=== PATIENT | female | born 2000 | race Hispanic/Latino ===

== ENCOUNTER 2018-08-04 17:26 | Emergency (ER) | payer SELFPAY ==
[2018-08-04] MEDS ORDERED: Fentanyl 100 MCG/2 ML VIAL ONE (17:35)
[2018-08-04] MEDS ORDERED: KETAMINE 100 MG/ML (5ML VIAL) ONE (17:37)
--- NOTE | 2018-08-04 18:06 | RAD ---
RIGHT KNEE TWO VIEW 08/04/18 HISTORY: Dislocation. Pain. COMPARISON: None. FINDINGS: Small joint effusion. There is an area of peripheral sclerosis of the distal femoral metaphysis with focally central lucency. No acute fracture is appreciated. IMPRESSION: 1. No acute fracture or malalignment. 2. 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 Followup can be obtained. POS: RICH
[2018-08-04] MEDS ORDERED: Lorazepam 2 MG/ML VIAL ONE (18:21)
[2018-08-04] MEDS ORDERED: Ondansetron PF 4 MG/2 ML Vial ONE (18:36)
== END 2018-08-04 19:44 | disposition home or self-care (01) ==
LOC: ERS 17:26
DX: S83.004A Unspecified dislocation of right patella, initial encounter (principal); Z79.899 Other long term (current) drug therapy; V00.211A Fall from ice-skates, initial encounter; Y93.21 Activity, ice skating
CPT/HCPCS: 27550; 96374; 96375; J2060; J2405; J3010